=== PATIENT | female | born 1960 | race Caucasian/White ===

== ENCOUNTER → 2017-04-29 | Outpatient (CLI) | payer OTHER ==
[~2017-04-29] MED LIST: HYDR-757 PO
--- NOTE | 2017-04-29 13:32 | Diagnostic Imaging Report ---
Bilateral screening mammogram 2D views with tomosynthesis The current study was also evaluated with a Computer Aided Detection (CAD) system. Indication: Screening. No current complaints stated on the questionnaire. COMPARISON: 12/07/2006 FINDINGS: There is an asymmetry seen along the central aspect of the right MLO view posteriorly measuring 8 mm. There is question of architectural distortion along the outer posterior aspect of the right breast. The background breast parenchyma is composed of heterogeneously dense fibroglandular tissue which may decrease mammographic sensitivity. IMPRESSION: Focal compression views and ultrasound evaluation for asymmetries along the central posterior aspect of the right MLO view and along the posterior lateral aspect of the right cc projection. BI-RADS 0. ACR BI-RADS Category 0: Incomplete. (Needs additional imaging evaluation). Result letter will be mailed to the patient. Note: At least 10% of breast cancer is not imaged by mammography. Dictated by: Dictated on workstation # [id number]
== END ==
LOC: RAD 10:07
PROVIDERS: ATTEND Family Medicine
DX: Z12.31 Encounter for screening mammogram for malignant neoplasm of breast (principal)
CPT/HCPCS: 77067

== ENCOUNTER → 2017-05-17 | Outpatient (CLI) | payer OTHER ==
--- NOTE | 2017-05-17 14:21 | Diagnostic Imaging Report ---
EXAMINATION: Right breast diagnostic mammogram with tomography. The current study was also evaluated with a Computer Aided Detection (CAD) system. INDICATION: Focal asymmetry in the outer aspect of the right breast. FINDINGS: Focal compression views demonstrate no definite underlying mass, suspicious calcifications, or architectural distortion. IMPRESSION: No definite underlying lesion with less prominent asymmetry which could possibly relate to summation artifact of parenchyma. An ultrasound evaluation is pending. ACR BI-RADS Category 0: Incomplete. (Needs additional imaging evaluation). Result letter will be mailed to the patient. Note: At least 10% of breast cancer is not imaged by mammography. Dictated by: Dictated on workstation # [id number]
--- NOTE | 2017-05-17 14:28 | Diagnostic Imaging Report ---
EXAMINATION: Right breast ultrasound. INDICATION: Right breast question of architectural distortion in the upper right breast asymmetry. FINDINGS: The outer aspect of the right breast and retroareolar region were scanned with no underlying abnormality seen. IMPRESSION: Negative study. The mammographic asymmetries are likely related to summation artifact of parenchyma. A 6 month followup mammogram is recommended to ensure stability. ACR BI-RADS Category 3: Probably benign findings. Dictated by: Dictated on workstation # [id number]
== END ==
LOC: RAD 08:38
PROVIDERS: ATTEND Nurse Practitioner Family
DX: R92.8 Other abnormal and inconclusive findings on diagnostic imaging of breast (principal)

== ENCOUNTER → 2020-12-19 | Outpatient (CLI) | payer BC ==
[~2020-12-19] MED LIST changes: +HYDR-4226 PO; -HYDR-757 PO
--- NOTE | 2020-12-19 09:43 | Diagnostic Imaging Report ---
INDICATION: Routine screening. COMPARISON: 04/29/2017. TECHNIQUE: 2D and 3D bilateral screening mammography was performed with CAD. FINDINGS: Both breasts are heterogeneously dense, limiting the sensitivity of mammography. The parenchymal pattern is stable. There are benign calcifications present. No mass or malignant appearing microcalcifications are seen. The axillae are unremarkable. IMPRESSION: No mammographic features suspicious for malignancy are identified. ACR BI-RADS Category 2: Benign findings. Result letter will be mailed to the patient. Note: At least 10% of breast cancer is not imaged by mammography. Dictated by: Dictated on workstation # [id number]
== END ==
LOC: RAD 08:00
PROVIDERS: ATTEND Nurse Practitioner Family
DX: Z12.31 Encounter for screening mammogram for malignant neoplasm of breast (principal); Z12.4 Encounter for screening for malignant neoplasm of cervix; Z00.00 Encounter for general adult medical examination without abnormal findings
CPT/HCPCS: 77063; 77067

== ENCOUNTER → 2020-12-27 | Outpatient (CLI) | payer BC ==
--- NOTE | 2020-12-27 16:27 | Diagnostic Imaging Report ---
PROCEDURE: US Non-ob pelvis comp/trans. INDICATION: Right lower quadrant pain, firmness with examination. Postmenopausal LMP 2010. TECHNIQUE: Multiple real time smith scale sonographic images were obtained of the pelvis transabdominally and endovaginally. CORRELATION STUDY: None FINDINGS: UTERUS: 5.8 x 4.0 x 2.6 cm. Area of heterogeneity along the left fundal aspect may reflective a fibroid at 0.9 x 1.7 x 1.2 cm. Probable tiny cervical nabothian cyst. ENDOMETRIUM: 1 mm. The endometrium appearing unremarkable. RIGHT OVARY: Not visualized LEFT OVARY: Not visualized Nonvisualized ovaries likely owing to their atrophic state and/or positional or perhaps obscured by bowel gas. No significant free pelvic fluid. IMPRESSION: 1. Probable fibroid uterus. Dictated by: Dictated on workstation # [id number]
== END ==
LOC: RAD 14:59
PROVIDERS: ATTEND Surgery
DX: R10.31 Right lower quadrant pain (principal)
CPT/HCPCS: 76830; 76856